=== PATIENT | male | born 1980 | race Caucasian/White ===

== ENCOUNTER 2017-01-17 19:23 | Emergency (ER) | payer SELFPAY ==
[2017-01-17 20:09] VITALS: BP 134/92
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
[2017-01-18] MEDS ORDERED: MOTRIN PO ONE (00:39)
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
== END 2017-01-18 01:55 | disposition home or self-care (01) ==
LOC: ED 19:23
DX: S00.03XA Contusion of scalp, initial encounter (principal); Y08.89XA Assault by other specified means, initial encounter; Y93.89 Activity, other specified; Y99.8 Other external cause status; Y92.89 Other specified places as the place of occurrence of the external cause
CPT/HCPCS: 70450